=== PATIENT | female | born 1940 | race Caucasian/White ===

== ENCOUNTER 2017-10-06 10:34 | Observation (INO) | payer MEDICARE ==
[2017-10-06] MEDS: DUONEB 0.5-3 MG/3 ml Neb IH SCH ×4 (11:30→23:33)
[2017-10-06] MEDS ORDERED: DUONEB 0.5-3 MG/3 ml Neb IH ONE (11:38)
--- NOTE | 2017-10-06 12:37 | PCM.HP ---
History of Present Illness - Chief Complaint Chief Complaint: C/o cough, chest congestion and fever for 3-4 days History of Present Illness: is a 77 year old female.admitted to hospital with c/o fever, chills, cough, for 2-3 days - Review of Systems Constitutional: Fever, Chills, Fatigue, Lethargy, Weakness Eyes: No Symptoms Ears, Nose, & Throat: No Symptoms Respiratory: Cough, Orthopnea, Short Of Breath, Wheezing Cardiac: No Chest Pain, No Edema, No Syncope Abdominal/Gastrointestinal: No Abdominal Pain, No Nausea, No Vomiting, No Diarrhea Genitourinary Symptoms: No Dysuria Musculoskeletal: No Back Pain, No Neck Pain Skin: No Rash Neurological: No Dizziness, No Focal Weakness, No Sensory Changes Psychological: No Symptoms Endocrine: No Symptoms Hematologic/Lymphatic: No Symptoms Immunological/Allergic: No Symptoms Medications & Allergies Home Medications: Home Medication List Famotidine 20 mg [Pepcid 20 MG] 20 mg PO BID 10/21/12 [History Confirmed 10/06/17] Lisinopril 20 mg PO DAILY 10/21/12 [History Confirmed 10/06/17] Ipratropium/Albuterol Sulfate [Duoneb 0.5 mg-3 mg/3 ml Soln] 3 ml IH QID [History Confirmed 10/06/17] Clonidine HCl 0.1 mg [Catapres 0.1 MG] 0.1 mg PO BID 01/27/14 [History Confirmed 10/06/17] Aspirin 81 gm Chew [Baby Aspirin 81 mg Chew] 81 mg PO DAILY 05/15/14 [ History Confirmed 10/06/17] Glipizide 5 mg [Glucotrol 5 MG] 5 mg PO DAILY 05/15/14 [History Confirmed 10/06/17] Amlodipine Besylate 5 mg [Norvasc 5 mg] 5 mg PO BID 10/20/14 [History Confirmed 10/06/17] Carvedilol 12.5 mg [Coreg 12.5 mg] 6.25 mg PO BID 10/20/14 [History Confirmed 10/06/17] Ferrous Sulfate [Iron] 325 mg PO DAILY #30 01/19/15 [Rx Confirmed 10/06/17] Bumetanide 2 mg PO BID 03/08/15 [History Confirmed 10/06/17] Magnesium 250 mg PO DAILY 10/13/16 [History Confirmed 10/06/17] Allergies/Adverse Reactions: Allergies Allergy/AdvReac Type Severity Reaction Status Date / Time oxycodone HCl [From Percodan] Allergy Intermediate hallucinate Verified 06:44 oxycodone terephthalate Allergy Intermediate hallucinati Verified 10/13/16 06:44 [From Percodan] ons clopidogrel bisulfate AdvReac Severe Verified 10/13/16 06:44 [From Plavix] prednisone AdvReac Intermediate Feeling Verified 10/13/16 06:44 jittery with prednisone - Past Medical History Past Medical History: Yes Neurological History: No Pertinent History ENT History: No Pertinent History Cardiac History: Hypertension, Other Respiratory History: Bronchitis, COPD, Emphysema, Pneumonia Endocrine Medical History: Diabetes Type II Musculoskelatal History: Arthritis, Osteoarthritis GI Medical History: Irritable Bowel, Ulcer History: No Pertinent History Pyscho-Social History: No Pertinent History Reproductive Disorders: No Pertinent History, Other Comment: stomach aneurysm, 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 EGD - Social History Smoking Status: Current every day smoker How long have you smoked: 52 years Exposure to second hand smoke: Yes Alcohol: None Drug Use: none - Physical Exam Vital Signs: Vital Signs - 24 hr Temp Pulse Resp BP Pulse Ox 10/06/17 11:57 98.7 F 76 24 148/72 88 L Oxygen-Last 24 hours O2 Percentage 4 Liters = 36% General Appearance: no apparent distress, alert Neurologic Exam: alert, oriented x 3, cooperative, normal mood/affect, nml cerebellar function, nml station & gait, sensation nml, No motor deficits Eye Exam: PERRL/EOMI, eyes nml inspection Ears, Nose, Throat Exam: normal ENT inspection, TMs normal, pharynx normal, moist mucous membranes Neck Exam: normal inspection, non-tender, supple, full range of motion Respiratory Exam: chest tenderness, crackles/rales, rhonchi, wheezing, No respiratory distress Cardiovascular Exam: regular rate/rhythm, normal heart sounds, normal peripheral pulses Gastrointestinal/Abdomen Exam: soft, normal bowel sounds, No tenderness, No mass Back Exam: normal inspection, normal range of motion, No CVA tenderness, No vertebral tenderness Extremity Exam: normal inspection, normal range of motion, pelvis stable Skin Exam: normal color, warm, dry, No rash Lymphatic Exam: No adenopathy Results - Radiology Impressions Radiology Exams & Impressions: Radiology Procedures Category Date Time Status CHEST 2 VIEWS (PA AND LAT) Stat Exams 10/06/17 12:31 Ordered - Other Procedures and Tests Respiratory Therapy 10/06/17 12:31 Respiratory Therapy Consult ROUTINE Assessment/Plan (1) Pneumonia Current Visit: Yes Status: Acute Qualifiers: Pneumonia type: due to unspecified organism Laterality: right Lung location: middle lobe of lung Qualified Code(s): J18.1 - Lobar pneumonia, unspecified organism Code(s): J18.9 - PNEUMONIA, UNSPECIFIED ORGANISM (2) COPD exacerbation Current Visit: Yes Status: Acute Code(s): J44.1 - CHRONIC OBSTRUCTIVE PULMONARY DISEASE W (ACUTE) EXACERBATION (3) Congestive heart failure (CHF) Current Visit: Yes Status: Chronic Qualifiers: Congestive heart failure type: combined Congestive heart failure chronicity : chronic Qualified Code(s): I50.42 - Chronic combined systolic (congestive) and diastolic (congestive) heart failure Code(s): I50.9 - HEART FAILURE, UNSPECIFIED (4) Diabetes mellitus Current Visit: Yes Status: Chronic Code(s): E11.9 - TYPE 2 DIABETES MELLITUS WITHOUT COMPLICATIONS
--- NOTE | 2017-10-06 13:31 | XRAY ---
Indication: Pneumonia. Comparison: October 14, 2016. PA/lateral chest again hyperinflated with new right middle lobe and lesser degree right upper lobe consolidating infiltrate versus atelectasis. Remaining lungs clear. Heart is not enlarged. Stable calcified granulomas.
[2017-10-06 14:16] LABS: BASOPHIL % 0.5 % (0.0-0.4); Eosinophil % 0.6 % (0.00-5.0); Granulocytes % 80.7 % (36.0-66.0); Lymphocytes % 9.9 % (24.0-44.0); Mean Cell Volume 104.3 fl (78-100); Mean Corpuscular Hemoglobin 30.7 pg (26-32); Mean Platelet Volume 9.5 fl (6-9.5); Monocytes % 8.3 % (0.0-12.0); Platelet Count 360 K/mm3 (150-450); Red Blood Count 2.31 M/mm3 (4.1-5.4); Red Cell Distribution Width 14.7 % (11.5-14.0); White Blood Count 6.2 K/mm3 (4.0-10.5)
[2017-10-06 14:32] LABS: ANION GAP 7.8 MEQ/L (5-15); Carbon Dioxide 33.8 mEq/L (21-32); Potassium 5.4 mEq/L (3.5-5.1)
[2017-10-06] MEDS ORDERED: Lasix 20 MG/2 ML IV SCH (15:48)
[2017-10-06] MEDS: Sodium Chloride 0.9% 1000 ML 1,000 ML IV SCH (15:53)
[2017-10-06] MEDS: FEOSOL 325 MG PO SCH (15:55)
[2017-10-06] MEDS: Glucotrol 5 MG PO SCH (15:56)
[2017-10-06] MEDS: MAG-OX 400 PO SCH (15:56)
[2017-10-06] MEDS: Zestril 20 MG PO SCH (15:56)
[2017-10-06] MEDS: ECOTRIN 81 MG PO SCH (15:57)
[2017-10-06] MEDS: ROCEPHIN 1 Gm-D5w 50 ml Bag** 1 G/50 ML IVPB IV SCH (16:17)
[2017-10-06] MEDS: Catapres 0.1 MG PO SCH (17:43)
[2017-10-06] MEDS: BUMEX 1 MG PO SCH (17:44)
[2017-10-06] MEDS: Zithromax 500 MG/ 250 ML NaCl Premix 500 MG/250 ML IVPB IV SCH (17:44)
[2017-10-06] MEDS: Pepcid 20 MG PO SCH (17:44)
[2017-10-06] MEDS ORDERED: BUMETANIDE 2 MG PO SCH (22:00)
[2017-10-06] MEDS: Coreg 6.25 MG PO SCH (22:02)
[2017-10-06] MEDS: NORVASC 5 MG PO SCH (22:02)
[2017-10-07] MEDS: DUONEB 0.5-3 MG/3 ml Neb IH SCH ×6 (02:36→23:09)
[2017-10-07] MEDS: Sodium Chloride 0.9% 500 ML 500 ML IV SCH ×2 (02:44→09:14)
[2017-10-07] MEDS ORDERED: Lasix 20 MG/2 ML ONE (05:45)
[2017-10-07] MEDS: Pepcid 20 MG PO SCH ×2 (08:30→16:55)
[2017-10-07] MEDS: ECOTRIN 81 MG PO SCH (08:31)
[2017-10-07] MEDS: NORVASC 5 MG PO SCH ×2 (08:31→20:43)
[2017-10-07] MEDS: Glucotrol 5 MG PO SCH (08:31)
[2017-10-07] MEDS: FEOSOL 325 MG PO SCH (08:31)
[2017-10-07] MEDS: Catapres 0.1 MG PO SCH ×2 (08:31→16:56)
[2017-10-07] MEDS: Zestril 20 MG PO SCH (08:32)
[2017-10-07] MEDS: MAG-OX 400 PO SCH (08:32)
[2017-10-07] MEDS: BUMEX 1 MG PO SCH ×2 (08:33→16:55)
[2017-10-07] MEDS: Coreg 6.25 MG PO SCH ×2 (08:33→20:43)
--- NOTE | 2017-10-07 08:58 | PCM.NOTE ---
Date and Time: 10/07/17 0856 Subjective Assessment: doing better - Review of Systems Constitutional: No Fever, No Chills Eyes: No Symptoms Ears, Nose, & Throat: No Symptoms Respiratory: No Cough, No Short Of Breath Cardiac: No Chest Pain, No Edema, No Syncope Abdominal/Gastrointestinal: No Abdominal Pain, No Nausea, No Vomiting, No Diarrhea Genitourinary Symptoms: No Dysuria Musculoskeletal: No Back Pain, No Neck Pain Skin: No Rash Neurological: No Dizziness, No Focal Weakness, No Sensory Changes Psychological: No Symptoms Endocrine: No Symptoms Hematologic/Lymphatic: No Symptoms Immunological/Allergic: No Symptoms Objective Exam General Appearance: no apparent distress, alert Neurologic Exam: alert, oriented x 3, cooperative, normal mood/affect, nml cerebellar function, sensation nml, No motor deficits Skin Exam: normal color, warm, dry Eye Exam: PERRL, EOMI, eyes nml inspection Ears, Nose, Throat Exam: normal ENT inspection, pharynx normal, moist mucous membranes Neck Exam: normal inspection, non-tender, supple, full range of motion Respiratory Exam: normal breath sounds, lungs clear, No respiratory distress Cardiovascular Exam: regular rate/rhythm, normal heart sounds Gastrointestinal/Abdomen Exam: soft, No tenderness, No mass Extremity Exam: normal inspection, normal range of motion Back Exam: normal inspection, normal range of motion, No CVA tenderness, No vertebral tenderness Pelvic Exam: deferred Rectal Exam: deferred OBJECTIVE DATA Vital Signs: Vital Signs - 24 hr Temp Pulse Resp BP Pulse Ox 10/07/17 07:06 97.3 F 75 20 143/60 90 L 10/07/17 07:03 77 20 90 L 10/07/17 04:00 97.8 F 74 20 124/50 93 L 10/07/17 02:37 75 20 82 L 10/07/17 00:00 98.2 F 79 20 137/59 90 L 10/06/17 23:33 77 22 91 L 10/06/17 20:00 98.6 F 89 22 134/64 90 L 10/06/17 19:20 80 22 90 L 10/06/17 16:00 98.6 F 87 22 129/57 90 L 10/06/17 15:00 24 10/06/17 12:45 98.7 F 76 24 148/72 88 L 10/06/17 11:57 98.7 F 76 24 148/72 88 L 10/06/17 11:30 80 24 88 L Oxygen-Last 24 hours O2 Percentage 5 Liters = 40% O2 Percentage 5 Liters = 40% O2 Percentage 5 Liters = 40% O2 Percentage 6 Liters = 44% O2 Percentage 4 Liters = 36% O2 Percentage 4 Liters = 36% Pain Assessment - Last Documented Pain Intensity 5 Pain Scale Used FLACC Intake and Output: Intake & Output 10/04/17 10/05/17 10/06/17 10/07/17 11:59 11:59 11:59 11:59 Intake Total 1080 Output Total 600 Balance 480 Weight 81.647 kg Lab Results: Accuchecks Date 10/06/17 Time 22:00 Accucheck Value: 160 Accucheck Value: 213 Lab Results-Last 24 Hours 10/06/17 10/06/17 10/06/17 Range/Units 14:00 14:00 14:10 WBC 6.2 (4.0-10.5) K/mm3 RBC 2.31 L (4.1-5.4) M/mm3 Hgb 7.1 L (12.0-16.0) gm/dl Hct 24.1 L (35-47) % MCV 104.3 H (78-100) fl MCH 30.7 (26-32) pg MCHC 29.5 L (32-36) g/dl RDW 14.7 H (11.5-14.0) % Plt Count 360 (150-450) K/mm3 MPV 9.5 (6-9.5) fl Gran % 80.7 H (36.0-66.0) % Lymphocytes % 9.9 L (24.0-44.0) % Monocytes % 8.3 (0.0-12.0) % Eosinophils % 0.6 (0.00-5.0) % Basophils % 0.5 (0.0-0.4) % Basophils # 0.03 (0-0.4) Sodium 132 L (136-145) mEq/L Potassium 5.4 H (3.5-5.1) mEq/L Chloride 96 L (98-107) mEq/L Carbon Dioxide 33.8 H (21-32) mEq/L Anion Gap 7.8 (5-15) MEQ/L BUN 34 H (9-20) mg/dL Creatinine 1.79 H (0.55-1.30) mg/dl Estimated GFR 29 ML/MIN Glucose 200 H (70-110) MG/DL Hemoglobin A1c (4.5-6.2) Calcium 8.6 (8.5-10.1) mg/dL ABO Group B Rh Factor NEGATIVE Antibody Screen NEGATIVE (NEGATIVE) Crossmatch (COMPATIBLE) 10/06/17 10/06/17 10/06/17 Range/Units 14:10 14:10 14:10 WBC (4.0-10.5) K/mm3 RBC (4.1-5.4) M/mm3 Hgb (12.0-16.0) gm/dl Hct (35-47) % MCV (78-100) fl MCH (26-32) pg MCHC (32-36) g/dl RDW (11.5-14.0) % Plt Count (150-450) K/mm3 MPV (6-9.5) fl Gran % (36.0-66.0) % Lymphocytes % (24.0-44.0) % Monocytes % (0.0-12.0) % Eosinophils % (0.00-5.0) % Basophils % (0.0-0.4) % Basophils # (0-0.4) Sodium (136-145) mEq/L Potassium (3.5-5.1) mEq/L Chloride (98-107) mEq/L Carbon Dioxide (21-32) mEq/L Anion Gap (5-15) MEQ/L BUN (9-20) mg/dL Creatinine (0.55-1.30) mg/dl Estimated GFR ML/MIN Glucose (70-110) MG/DL Hemoglobin A1c (4.5-6.2) Calcium (8.5-10.1) mg/dL ABO Group Rh Factor Antibody Screen (NEGATIVE) Crossmatch COMPATIBLE COMPATIBLE COMPATIBLE (COMPATIBLE) 10/06/17 Range/Units 16:00 WBC (4.0-10.5) K/mm3 RBC (4.1-5.4) M/mm3 Hgb (12.0-16.0) gm/dl Hct (35-47) % MCV (78-100) fl MCH (26-32) pg MCHC (32-36) g/dl RDW (11.5-14.0) % Plt Count (150-450) K/mm3 MPV (6-9.5) fl Gran % (36.0-66.0) % Lymphocytes % (24.0-44.0) % Monocytes % (0.0-12.0) % Eosinophils % (0.00-5.0) % Basophils % (0.0-0.4) % Basophils # (0-0.4) Sodium (136-145) mEq/L Potassium (3.5-5.1) mEq/L Chloride (98-107) mEq/L Carbon Dioxide (21-32) mEq/L Anion Gap (5-15) MEQ/L BUN (9-20) mg/dL Creatinine (0.55-1.30) mg/dl Estimated GFR ML/MIN Glucose (70-110) MG/DL Hemoglobin A1c 6.0 (4.5-6.2) Calcium (8.5-10.1) mg/dL ABO Group Rh Factor Antibody Screen (NEGATIVE) Crossmatch (COMPATIBLE) Radiology Exams: Radiology Procedures Category Date Time Status CHEST 2 VIEWS (PA AND LAT) Stat Exams 10/06/17 12:31 Completed Assessment/Plan (1) Pneumonia Current Visit: Yes Status: Acute Qualifiers: Pneumonia type: due to unspecified organism Laterality: right Lung location: middle lobe of lung Qualified Code(s): J18.1 - Lobar pneumonia, unspecified organism Code(s): J18.9 - PNEUMONIA, UNSPECIFIED ORGANISM (2) COPD exacerbation Current Visit: Yes Status: Acute Code(s): J44.1 - CHRONIC OBSTRUCTIVE PULMONARY DISEASE W (ACUTE) EXACERBATION (3) Congestive heart failure (CHF) Current Visit: Yes Status: Chronic Qualifiers: Congestive heart failure type: combined Congestive heart failure chronicity : chronic Qualified Code(s): I50.42 - Chronic combined systolic (congestive) and diastolic (congestive) heart failure Code(s): I50.9 - HEART FAILURE, UNSPECIFIED (4) Diabetes mellitus Current Visit: Yes Status: Chronic Code(s): E11.9 - TYPE 2 DIABETES MELLITUS WITHOUT COMPLICATIONS
[2017-10-07] MEDS ORDERED: Lasix 20 MG/2 ML IV SCH (09:00)
[2017-10-07 09:09] LABS: Mean Cell Volume 98.4 fl (78-100); Mean Corpuscular Hemoglobin 30.2 pg (26-32); Mean Platelet Volume 9.4 fl (6-9.5); Platelet Count 332 K/mm3 (150-450); Red Blood Count 3.14 M/mm3 (4.1-5.4); Red Cell Distribution Width 16.5 % (11.5-14.0); White Blood Count 5.6 K/mm3 (4.0-10.5)
[2017-10-07 09:30] LABS: ANION GAP 10.6 MEQ/L (5-15); Carbon Dioxide 31.1 mEq/L (21-32); Potassium 5.2 mEq/L (3.5-5.1)
[2017-10-07] MEDS ORDERED: NON-FORMULARY ITEM (Magnesium [Magnesium] 250 MG) PO SCH (10:00)
[2017-10-07] MEDS: ROCEPHIN 1 Gm-D5w 50 ml Bag** 1 G/50 ML IVPB IV SCH (11:41)
[2017-10-07] MEDS: Zithromax 500 MG/ 250 ML NaCl Premix 500 MG/250 ML IVPB IV SCH (11:41)
[2017-10-07] MEDS: Sodium Chloride 0.9% 1000 ML 1,000 ML IV SCH ×2 (17:01→17:08)
[2017-10-08] MEDS: DUONEB 0.5-3 MG/3 ml Neb IH SCH ×3 (03:20→10:58)
[2017-10-08] MEDS: Sodium Chloride 0.9% 1000 ML 1,000 ML IV SCH (03:55)
[2017-10-08] MEDS: Pepcid 20 MG PO SCH (08:26)
[2017-10-08] MEDS: Catapres 0.1 MG PO SCH (08:26)
[2017-10-08] MEDS: Glucotrol 5 MG PO SCH (08:26)
[2017-10-08] MEDS: ECOTRIN 81 MG PO SCH (08:26)
[2017-10-08] MEDS: Coreg 6.25 MG PO SCH (09:24)
[2017-10-08] MEDS: FEOSOL 325 MG PO SCH (09:24)
[2017-10-08] MEDS: Zestril 20 MG PO SCH (09:24)
[2017-10-08] MEDS: NORVASC 5 MG PO SCH (09:24)
[2017-10-08] MEDS: MAG-OX 400 PO SCH (09:24)
[2017-10-08] MEDS: BUMEX 1 MG PO SCH (09:24)
[2017-10-08] MEDS: ROCEPHIN 1 Gm-D5w 50 ml Bag** 1 G/50 ML IVPB IV SCH (09:25)
[2017-10-08] MEDS: Zithromax 500 MG/ 250 ML NaCl Premix 500 MG/250 ML IVPB IV SCH (11:18)
[2017-10-08 11:41] VITALS: BP 152/70; PULSE 76; O2SAT 91
--- NOTE | 2017-10-08 12:38 | PCM.DS ---
Discharge Summary Date of Admission: 10/06/17 11:41 Admitting Physician: FREDDY TRAYLOR Primary Care Provider: FREDDY TRAYLOR Allergies Allergies oxycodone HCl [From Percodan] Allergy (Intermediate, Verified 10/13/16 06:44) hallucinate oxycodone terephthalate [From Percodan] Allergy (Intermediate, Verified 06:44) hallucinations itching clopidogrel bisulfate [From Plavix] Adverse Reaction (Severe, Verified 10/13/16 06:44) prednisone Adverse Reaction (Intermediate, Verified 10/13/16 06:44) Feeling jittery with prednisone Hospital Summary - Hospital Course Hospital Course: Chief Complaint Diagnosis C/o cough, chest congestion and fever for 3-4 days Allergies Allergy/AdvReac Type Severity Reaction Status Date / Time oxycodone HCl [From Percodan] Allergy Intermediate hallucinate Verified 06:44 oxycodone terephthalate Allergy Intermediate hallucinati Verified 10/13/16 06:44 [From Percodan] ons clopidogrel bisulfate AdvReac Severe Verified 10/13/16 06:44 [From Plavix] prednisone AdvReac Intermediate Feeling Verified 10/13/16 06:44 jittery with prednisone Vital Signs (Last 24 hours) Temp Pulse Resp BP Pulse Ox 10/08/17 11:40 98.6 F 76 20 152/70 91 L 10/08/17 11:00 84 20 90 L 10/08/17 08:20 90 L 10/08/17 07:54 98.0 F 77 18 166/67 92 L 10/08/17 06:58 79 20 93 L 10/08/17 04:00 98.2 F 80 18 146/100 92 L 10/08/17 03:00 78 18 91 L 10/08/17 00:00 98.5 F 77 20 161/67 93 L 10/07/17 23:00 82 18 88 L 10/07/17 20:00 98.5 F 78 20 166/70 95 10/07/17 19:00 76 18 93 L 10/07/17 15:13 98.2 F 87 20 136/80 90 L 10/07/17 14:39 89 18 90 L Current Medications Generic Name Dose Route Start Last Admin Trade Name Freq PRN Reason Stop Dose Admin Albuterol/Ipratropium 3 ml 10/06/17 11:00 10/08/17 10:58 Duoneb 0.5-3 Mg/3 Ml Neb IH 11/05/17 10:59 3 ml Q4HRT IVANA Administration Amlodipine Besylate 5 mg 10/06/17 22:00 10/08/17 09:24 Norvasc 5 Mg PO 11/05/17 21:59 5 mg BID IVANA Administration Aspirin 81 mg 10/06/17 16:00 10/08/17 08:26 Ecotrin 81 Mg PO 11/05/17 15:59 81 mg BREAKFAST IVANA Administration Bumetanide 2 mg 10/06/17 17:00 10/08/17 09:24 Bumex 1 Mg PO 11/05/17 16:59 2 mg BID DIURETIC IVANA Administration Carvedilol 6.25 mg 10/06/17 22:00 10/08/17 09:24 Coreg 6.25 Mg PO 11/05/17 21:59 6.25 mg BID IVANA Administration Clonidine 0.1 mg 10/06/17 17:00 10/08/17 08:26 Catapres 0.1 Mg PO 11/05/17 16:59 0.1 mg BIDWM IVANA Administration Famotidine 20 mg 10/06/17 17:00 10/08/17 08:26 Pepcid 20 Mg PO 11/05/17 16:59 20 mg BIDWM IVANA Administration Ferrous Sulfate 325 mg 10/06/17 16:00 10/08/17 09:24 Feosol 325 Mg PO 11/05/17 15:59 325 mg DAILY IVANA Administration Furosemide 20 mg 10/07/17 09:00 10/07/17 09:13 Lasix 20 Mg/2 Ml IV 11/06/17 08:59 20 mg AFTER EA UNIT BLOOD IVANA Administration Glipizide 5 mg 10/06/17 16:00 10/08/17 08:26 Glucotrol 5 Mg PO 11/05/17 15:59 5 mg BREAKFAST IVANA Administration Ceftriaxone Sodium/Dextrose 1 g in 50 mls @ 100 mls/hr 10/06/17 13:00 09:25 Rocephin 1 Gm-D5w 50 Ml Bag IV 11/05/17 12:59 100 mls/hr Q24H10 IVANA Administration Azithromycin 500 mg in 250 mls @ 500 mls/hr 10/06/17 14:00 10/08/17 11:18 Zithromax 500 Mg/ 250 Ml Nacl Premix IV 11/05/17 13:59 Not Given DAILY IVANA Sodium Chloride 1,000 mls @ 100 mls/hr 10/06/17 14:00 10/08/17 03:55 Sodium Chloride 0.9% 1000 Ml IV 11/05/17 13:59 100 mls/hr .Q10H IVANA Administration Lisinopril 20 mg 10/06/17 16:00 10/08/17 09:24 Zestril 20 Mg PO 11/05/17 15:59 20 mg DAILY IVANA Administration Magnesium Oxide 200 mg 10/06/17 16:00 10/08/17 09:24 Mag-Ox 400 PO 11/05/17 15:59 200 mg DAILY IVANA Administration Discontinued Medications Generic Name Dose Route Start Last Admin Trade Name Freq PRN Reason Stop Dose Admin Albuterol/Ipratropium Confirm 10/06/17 11:38 Duoneb 0.5-3 Mg/3 Ml Neb Administered 10/06/17 11:39 Dose 3 ml IH .STK-MED ONE Furosemide 20 mg 10/06/17 15:48 10/07/17 05:53 Lasix 20 Mg/2 Ml IV 10/06/17 20:00 20 mg AFTER EA UNIT BLOOD IVANA Administration Furosemide Confirm 10/07/17 05:45 Lasix 20 Mg/2 Ml Administered 10/07/17 05:46 Dose 20 mg .ROUTE .STK-MED ONE Sodium Chloride 500 mls @ 50 mls/hr 10/07/17 02:45 10/07/17 09:14 Sodium Chloride 0.9% 500 Ml IV 10/07/17 12:44 50 mls/hr .Q10H IVANA Administration Intake & Output (Last 24 hours) 10/06/17 10/07/17 10/08/17 10/09/17 11:59 11:59 11:59 11:59 Intake Total 1080 1930 Output Total 600 2300 Balance 480 -370 Weight 81.647 kg Microbiology Results (Last 24 hours) 10/06/17 16:00 Blood - Pending 10/06/17 16:00 Blood Blood Culture - Preliminary NO GROWTH TO DATE 10/06/17 14:10 Blood - Pending 10/06/17 14:10 Blood Blood Culture - Preliminary NO GROWTH TO DATE Laboratory Results (Last 24 hours) 10/07/17 14:12 Hgb 10.0 L Hct 32.4 L Orders (Last 24 hours) Category Date Time Status HEMOGLOBIN AND HEMATOCRIT Urgent Lab 10/07/17 14:12 Completed - Vitals & Intake/Output Vital Signs: Vital Signs Temperature 98.6 F 10/08/17 11:40 Pulse Rate 76 10/08/17 11:40 Respiratory Rate 20 10/08/17 11:40 Blood Pressure 152/70 10/08/17 11:40 O2 Sat by Pulse Oximetry 91 L 10/08/17 11:40 Oxygen-Last Documented O2 Percentage 5 Liters = 40% Intake & Output: Intake & Output 10/06/17 10/07/17 10/08/17 10/09/17 11:59 11:59 11:59 11:59 Intake Total 1080 1930 Output Total 600 2300 Balance 480 -370 Weight 81.647 kg - Lab Result Diagrams: 10/07/17 14:12 10/07/17 09:07 Lab Results-Last 24 Hrs: Accuchecks Date 10/08/17 Date 10/07/17 Date 10/07/17 Time 07:30 Time 21:30 Time 16:00 Accucheck Value: 147 Accucheck Value: 176 Accucheck Value: 145 Lab Results-Last 24 Hours 10/07/17 Range/Units 14:12 Hgb 10.0 L (12.0-16.0) gm/dl Hct 32.4 L (35-47) % Micro Results-Entire Visit: Microbiology 10/06/17 16:00 Blood Culture - Preliminary Blood NO GROWTH TO DATE 10/06/17 14:10 Blood Culture - Preliminary Blood NO GROWTH TO DATE Accuchecks Date 10/08/17 Date 10/07/17 Date 10/07/17 Time 07:30 Time 21:30 Time 16:00 Accucheck Value: 147 Accucheck Value: 176 Accucheck Value: 145 - Radiology Exams Ordered Rad Exams-Entire Visit: Radiology Procedures Category Date Time Status CHEST 2 VIEWS (PA AND LAT) Stat Exams 10/06/17 12:31 Completed - Procedures and Test Procedures and Tests throughout Hospitalization: Therapy Orders & Screens 10/06/17 11:00 Respiratory Nebulizer Q4H Comment: Diagnosis: C/o cough, chest congestion and fever for 3-4 days 10/06/17 12:31 Respiratory Therapy Consult ROUTINE Comment: Reason For Exam: Diagnosis: Pneumonia 10/06/17 13:10 Oxygen NASAL CANNULA 4 lpm Comment: Diagnosis: C/o cough, chest congestion and fever for 3-4 days 10/06/17 15:09 OT Screen per Nursing Assess ONCE Comment: Protocol Order Physician Instructions: Greater than 3 points order OT Admission Screening Reason For Exam: Triggered on Admission Diagnosis: C/o cough, chest congestion and fever for 3-4 days Open Wound/Cellutlitis/Pressure Ulcers: No Acute Fx/ORIF/Change in wt bearing status: No Severe MUSCULOSKELETAL pain: No ADL Dysfunction: Yes Acute CVA w/Hemiparesis/Hemiplegia: No Decreased Functional Mobility/Strength: Yes Sprain/Strain: No Acute Post-op Mobility Dysfunction: No Total Points: 4 PT Screen per Nursing Assess ONCE Comment: Protocol Order Physician Instructions: Greater than 3 points order PT Admission Screenin Reason For Exam: Triggered on Admission Diagnosis: C/o cough, chest congestion and fever for 3-4 days Open Wound/Cellutlitis/Pressure Ulcers: No Acute Fx/ORIF/Change in wt bearing status: No Severe MUSCULOSKELETAL pain: No ADL Dysfunction: Yes Acute CVA w/Hemiparesis/Hemiplegia: No Decreased Functional Mobility/Strength: Yes Sprain/Strain: No Acute Post-op Mobility Dysfunction: No Total Points: 4 Discharge Exam General Appearance: no apparent distress, alert Neurologic Exam: alert, oriented x 3, cooperative, normal mood/affect, nml cerebellar function, sensation nml, No motor deficits Skin Exam: normal color, warm, dry Eye Exam: PERRL, EOMI, eyes nml inspection Ears, Nose, Throat Exam: normal ENT inspection, pharynx normal, moist mucous membranes Neck Exam: normal inspection, non-tender, supple, full range of motion Respiratory Exam: normal breath sounds, lungs clear, No respiratory distress Cardiovascular Exam: regular rate/rhythm, normal heart sounds Gastrointestinal/Abdomen Exam: soft, No tenderness, No mass Extremity Exam: normal inspection, normal range of motion Back Exam: normal inspection, normal range of motion, No CVA tenderness, No vertebral tenderness Pelvic Exam: deferred Rectal Exam: deferred Final Diagnosis/Problem List - Final Discharge Diagnosis/Problem (1) Pneumonia Current Visit: Yes Status: Acute Priority: High Assessment & Plan: Chief Complaint Diagnosis C/o cough, chest congestion and fever for 3-4 days Allergies Allergy/AdvReac Type Severity Reaction Status Date / Time oxycodone HCl [From Percodan] Allergy Intermediate hallucinate Verified 06:44 oxycodone terephthalate Allergy Intermediate hallucinati Verified 10/13/16 06:44 [From Percodan] ons clopidogrel bisulfate AdvReac Severe Verified 10/13/16 06:44 [From Plavix] prednisone AdvReac Intermediate Feeling Verified 10/13/16 06:44 jittery with prednisone Vital Signs (Last 24 hours) Temp Pulse Resp BP Pulse Ox 10/08/17 11:40 98.6 F 76 20 152/70 91 L 10/08/17 11:00 84 20 90 L 10/08/17 08:20 90 L 10/08/17 07:54 98.0 F 77 18 166/67 92 L 10/08/17 06:58 79 20 93 L 10/08/17 04:00 98.2 F 80 18 146/100 92 L 10/08/17 03:00 78 18 91 L 10/08/17 00:00 98.5 F 77 20 161/67 93 L 10/07/17 23:00 82 18 88 L 10/07/17 20:00 98.5 F 78 20 166/70 95 10/07/17 19:00 76 18 93 L 10/07/17 15:13 98.2 F 87 20 136/80 90 L 10/07/17 14:39 89 18 90 L Current Medications Generic Name Dose Route Start Last Admin Trade Name Freq PRN Reason Stop Dose Admin Albuterol/Ipratropium 3 ml 10/06/17 11:00 10/08/17 10:58 Duoneb 0.5-3 Mg/3 Ml Neb IH 11/05/17 10:59 3 ml Q4HRT IVANA Administration Amlodipine Besylate 5 mg 10/06/17 22:00 10/08/17 09:24 Norvasc 5 Mg PO 11/05/17 21:59 5 mg BID IVANA Administration Aspirin 81 mg 10/06/17 16:00 10/08/17 08:26 Ecotrin 81 Mg PO 11/05/17 15:59 81 mg BREAKFAST IVANA Administration Bumetanide 2 mg 10/06/17 17:00 10/08/17 09:24 Bumex 1 Mg PO 11/05/17 16:59 2 mg BID DIURETIC IVANA Administration Carvedilol 6.25 mg 10/06/17 22:00 10/08/17 09:24 Coreg 6.25 Mg PO 11/05/17 21:59 6.25 mg BID IVANA Administration Clonidine 0.1 mg 10/06/17 17:00 10/08/17 08:26 Catapres 0.1 Mg PO 11/05/17 16:59 0.1 mg BIDWM IVANA Administration Famotidine 20 mg 10/06/17 17:00 10/08/17 08:26 Pepcid 20 Mg PO 11/05/17 16:59 20 mg BIDWM IVANA Administration Ferrous Sulfate 325 mg 10/06/17 16:00 10/08/17 09:24 Feosol 325 Mg PO 11/05/17 15:59 325 mg DAILY IVANA Administration Furosemide 20 mg 10/07/17 09:00 10/07/17 09:13 Lasix 20 Mg/2 Ml IV 11/06/17 08:59 20 mg AFTER EA UNIT BLOOD IVANA Administration Glipizide 5 mg 10/06/17 16:00 10/08/17 08:26 Glucotrol 5 Mg PO 11/05/17 15:59 5 mg BREAKFAST IVANA Administration Ceftriaxone Sodium/Dextrose 1 g in 50 mls @ 100 mls/hr 10/06/17 13:00 09:25 Rocephin 1 Gm-D5w 50 Ml Bag IV 11/05/17 12:59 100 mls/hr Q24H10 IVANA Administration Azithromycin 500 mg in 250 mls @ 500 mls/hr 10/06/17 14:00 10/08/17 11:18 Zithromax 500 Mg/ 250 Ml Nacl Premix IV 11/05/17 13:59 Not Given DAILY IVANA Sodium Chloride 1,000 mls @ 100 mls/hr 10/06/17 14:00 10/08/17 03:55 Sodium Chloride 0.9% 1000 Ml IV 11/05/17 13:59 100 mls/hr .Q10H IVANA Administration Lisinopril 20 mg 10/06/17 16:00 10/08/17 09:24 Zestril 20 Mg PO 11/05/17 15:59 20 mg DAILY IVANA Administration Magnesium Oxide 200 mg 10/06/17 16:00 10/08/17 09:24 Mag-Ox 400 PO 11/05/17 15:59 200 mg DAILY IVANA Administration Discontinued Medications Generic Name Dose Route Start Last Admin Trade Name Freq PRN Reason Stop Dose Admin Albuterol/Ipratropium Confirm 10/06/17 11:38 Duoneb 0.5-3 Mg/3 Ml Neb Administered 10/06/17 11:39 Dose 3 ml IH .STK-MED ONE Furosemide 20 mg 10/06/17 15:48 10/07/17 05:53 Lasix 20 Mg/2 Ml IV 10/06/17 20:00 20 mg AFTER EA UNIT BLOOD IVANA Administration Furosemide Confirm 10/07/17 05:45 Lasix 20 Mg/2 Ml Administered 10/07/17 05:46 Dose 20 mg .ROUTE .STK-MED ONE Sodium Chloride 500 mls @ 50 mls/hr 10/07/17 02:45 10/07/17 09:14 Sodium Chloride 0.9% 500 Ml IV 10/07/17 12:44 50 mls/hr .Q10H IVANA Administration Intake & Output (Last 24 hours) 10/06/17 10/07/17 10/08/17 10/09/17 11:59 11:59 11:59 11:59 Intake Total 1080 1930 Output Total 600 2300 Balance 480 -370 Weight 81.647 kg Microbiology Results (Last 24 hours) 10/06/17 16:00 Blood - Pending 10/06/17 16:00 Blood Blood Culture - Preliminary NO GROWTH TO DATE 10/06/17 14:10 Blood - Pending 10/06/17 14:10 Blood Blood Culture - Preliminary NO GROWTH TO DATE Laboratory Results (Last 24 hours) 10/07/17 14:12 Hgb 10.0 L Hct 32.4 L Orders (Last 24 hours) Category Date Time Status HEMOGLOBIN AND HEMATOCRIT Urgent Lab 10/07/17 14:12 Completed doing better, will discharge home (2) COPD exacerbation Current Visit: Yes Status: Acute Assessment & Plan: resolved (3) Congestive heart failure (CHF) Current Visit: Yes Status: Chronic (4) Diabetes mellitus Current Visit: Yes Status: Chronic Assessment & Plan: stable (5) Anemia Current Visit: Yes Status: Acute Assessment & Plan: received 3 units of PRBC - Discharge Discharge Date: 10/08/17 Disposition: Home, Self-Care Condition: Stable Prescriptions: New Levofloxacin [Levaquin] 250 mg PO DAILY #5 tablet Continue Lisinopril 20 mg PO DAILY Famotidine 20 mg [Pepcid 20 MG] 20 mg PO BID Ipratropium/Albuterol Sulfate [Duoneb 0.5 mg-3 mg/3 ml Soln] 3 ml IH QID Clonidine HCl 0.1 mg [Catapres 0.1 MG] 0.1 mg PO BID Glipizide 5 mg [Glucotrol 5 MG] 5 mg PO DAILY Aspirin 81 gm Chew [Baby Aspirin 81 mg Chew] 81 mg PO DAILY Amlodipine Besylate 5 mg [Norvasc 5 mg] 5 mg PO BID Carvedilol 12.5 mg [Coreg 12.5 mg] 6.25 mg PO BID Ferrous Sulfate [Iron] 325 mg PO DAILY #30 Bumetanide 2 mg PO BID Magnesium 250 mg PO DAILY Follow up with: FREDDY TRAYLOR MD [Primary Care Provider] - 1 Week
== END 2017-10-08 13:15 | disposition home or self-care (01) ==
LOC: MED SURG 11:41
PROVIDERS: ADMIT General Practice; ATTEND General Practice
DX: J18.9 Pneumonia, unspecified organism (principal); J44.1 Chronic obstructive pulmonary disease with (acute) exacerbation; E11.9 Type 2 diabetes mellitus without complications; I50.9 Heart failure, unspecified; D64.9 Anemia, unspecified
CPT/HCPCS: 82962 ×2; 87040; 85014; 85018; 36415 ×2; 83036; 85027; 85025; 80048 ×2; 86850; 86900; 86901; 86922; 71020; 94640 ×6; 94760 ×3; P9016; 36430; 86870; G0378; J0456; J0696; J1940; A9270-GY

== ENCOUNTER 2017-11-20 14:37 | Emergency (ER) | payer MEDICARE ==
[2017-11-20] MEDS ORDERED: DUONEB 0.5-3 MG/3 ml Neb IH ONE ×2 (14:38→14:49)
[2017-11-20] MEDS ORDERED: Sodium Chloride 0.9% 1000 ML 1,000 ML IV SCH (14:45)
[2017-11-20 14:59] LABS: Lactic Acid 2.2 (0.4-2.0); VBG BASE EXCESS 9.3 (-2.0-2.0); VBG CARBOXYHEMOGLOBIN 6.2 % T HGB (0.0-6.9); VBG HCO3- 36.2 meq/L (22-28); VBG HEMOGLOBIN 8.6; VBG O2 SATURATION 60.4 (95-100); VBG PCO2 64 mm/Hg (42-55); VBG PO2 26 mm/Hg (25-40); VBG POTASSIUM 5.6 (3.5-5.1); VBG pH 7.36 (7.32-7.42)
--- NOTE | 2017-11-20 14:59 | ERPHSYRPT ---
- History of Present Illness Time Seen by Provider: 11/20/17 14:47 Source: patient Exam Limitations: no limitations Physician History: 77-year-old white female with history of iron deficiency anemia, high blood pressure, COPD, emphysema, pneumonia, diabetes, arthritis, irritable bowel, ulcers Patient is brought from the infusion center short of breath patient was apparently supposed to have an iron infusion today however she was noted to be 2 short of breath and infusion center did not feel comfortable giving her the infusion. She apparently had been seen Thursday 4 days ago secondary to shortness of breath she had been noted to be anemic and iron infusion was scheduled for today. She states that beginning 2 days ago she began to feel short of breath she was wheezing she is coughing up yellow sputum she denies any fever she denies any chest pain denies nausea or vomiting. Patient arrives moderately short of breath she has diminished breath sounds in her lungs and wheezes. She does state that she missed 2 DuoNeb treatments today. Patient is also noted to be on home O2 supposedly of 4 L/m however she was taking only 2 L/m. 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 Past surgical history includes appendectomy, hysterectomy, AAA, back surgery, right ovary removed, right carotid stent. Social history patient continues to smoke. Timing/Duration: day(s) (short of breath for 4 days wheezing coughing for 2 days ) Activities at Onset: none Severity of Dyspnea-Max: moderate Severity of Dyspnea-Current: moderate Possible Cause: frequent episodes Modifying Factors: Improves With: nothing, other (Patient uses duo neb treatments however she has missed 2 of these) Associated Symptoms: constant, cough, wheezing, productive cough (yellow sputum) , No intermittent, No anxiety, No chest pain/discomfort, No edema, No fever, No insomnia, No loss of appetite, No lightheadedness, No weakness, No ankle swelling, No chills, No hemoptysis, No calf pain, No dizziness, No heaviness, No heart racing, No lightheadedness, No leg swelling, No muscle spasms feet, No muscle spasms hands, No painful breathing, No sweating, No tightness, No tingling face, No tingling hands International travel in last 2 weeks: No Allergies/Adverse Reactions: oxycodone HCl [From Percodan] Allergy (Intermediate, Verified 11/20/17 14:55) hallucinate oxycodone terephthalate [From Percodan] Allergy (Intermediate, Verified 14:55) hallucinations itching clopidogrel bisulfate [From Plavix] Adverse Reaction (Severe, Verified 11/20/17 14:55) prednisone Adverse Reaction (Intermediate, Verified 11/20/17 14:55) Feeling jittery with prednisone Home Medications: Famotidine 20 mg [Pepcid 20 MG] 20 mg PO BID 10/21/12 [History] Lisinopril 20 mg PO DAILY 10/21/12 [History] Ipratropium/Albuterol Sulfate [Duoneb 0.5 mg-3 mg/3 ml Soln] 3 ml IH QID [History] Clonidine HCl 0.1 mg [Catapres 0.1 MG] 0.1 mg PO BID 01/27/14 [History] Aspirin 81 gm Chew [Baby Aspirin 81 mg Chew] 81 mg PO DAILY 05/15/14 [ History] Glipizide 5 mg [Glucotrol 5 MG] 5 mg PO DAILY 05/15/14 [History] Amlodipine Besylate 5 mg [Norvasc 5 mg] 5 mg PO BID 10/20/14 [History] Carvedilol 12.5 mg [Coreg 12.5 mg] 6.25 mg PO BID 10/20/14 [History] Bumetanide 2 mg PO BID 03/08/15 [History] Magnesium 250 mg PO DAILY 10/13/16 [History] Hx Tetanus, Diphtheria Vaccination/Date Given: No Hx Influenza Vaccination/Date Given: No (07/2013) Hx Pneumococcal Vaccination/Date Given: No (within last 5 years) - Review of Systems Constitutional: No Fever, No Chills Eyes: No Symptoms Ears, Nose, & Throat: No Symptoms, No Ear Pain, No Ear Discharge, No Hearing Changes, No Tinnitus, No Nose Pain, No Nose Congestion, No Nose Discharge, No Sinus Drainage, No Epistaxis, No Mouth Pain, No Mouth Swelling, No Loose Teeth, No Throat Pain, No Throat Swelling, No Hoarse, No Painful Swallowing, No Snoring , No Stridor Respiratory: Cough, Dyspnea, Wheezing Cardiac: No Chest Pain, No Edema, No Syncope Abdominal/Gastrointestinal: No Symptoms Genitourinary Symptoms: No Dysuria Musculoskeletal: No Back Pain, No Neck Pain Skin: No Rash Neurological: No Dizziness, No Focal Weakness, No Sensory Changes Psychological: No Symptoms Endocrine: No Symptoms All Other Systems: Reviewed and Negative - Past Medical History Pertinent Past Medical History: Yes Neurological History: No Pertinent History ENT History: No Pertinent History Cardiac History: Hypertension, Other Respiratory History: Bronchitis, COPD, Emphysema, Pneumonia Endocrine Medical History: Diabetes Type II Musculoskeletal History: Arthritis, Osteoarthritis GI Medical History: Irritable Bowel, Ulcer History: No Pertinent History Psycho-Social History: No Pertinent History Female Reproductive Disorders: No Pertinent History, Other Other Medical History: stomach aneurysm, 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 EGD - Social History Smoking Status: Current every day smoker How long have you smoked: 52 years Exposure to second hand smoke: Yes Drug Use: none Patient Lives Alone: No - Nursing Vital Signs Nursing Vital Signs: Initial Vital Signs Temperature 97.9 F 11/20/17 14:44 Pulse Rate 77 11/20/17 14:44 Respiratory Rate 28 H 11/20/17 14:44 Blood Pressure 118/51 11/20/17 14:44 O2 Sat by Pulse Oximetry 94 L 11/20/17 14:44 Pain Scale Pain Intensity 0 - Physical Exam General Appearance: other (morbidly obese white female alert oriented x 3 , pleasant and cooperative to examination, dyspneic) Eye Exam: PERRL/EOMI Ears, Nose, Throat Exam: hearing grossly normal, normal ENT inspection, normal pharynx, No abnormal TM (R), No abnormal TM (L), No sinus pain/drainage, No hearing decreased, No nasal congestion, No pharyngeal erythema, No tonsillar exudate, No tonsillar swelling Neck Exam: normal inspection, supple Respiratory Exam: respiratory distress (Mild to moderate respiratory distress), diminished breath sounds, wheezing Cardiovascular/Chest Exam: normal heart sounds, regular rate/rhythm Abdominal/Gastrointestinal Exam: soft, No tenderness, No distention, No mass Extremity Exam: non-tender, normal range of motion, normal inspection, no calf tenderness, no pedal edema Peripheral Pulses Exam: dorsalis-pedis (R): 2+, dorsalis-pedis (L): 2+ Neurologic Exam: alert, oriented x 3, cooperative, acid strength inspector II-XII nml as tested, normal mood/affect, nml cerebellar function, nml station & gait, sensation nml, No motor deficits Skin Exam: normal color, warm, No dry SpO2 Interpretation: borderline oxygenation (93% on 4 L nasal cannula) SpO2: 93 Oxygen Delivery: Nasal Cannula - Course Nursing assessment & vital signs reviewed: Yes EKG Interpreted by Me: RATE (77 bpm), Sinus Miguel, NORMAL AXIS, Other (EKG: Normal sinus rhythm 72 bpm normal axis no acute ST or T wave changes noted compared to October 13, 2016) - Radiology Exams Chest X-ray Interpretation: Discussed w/ radiologist (chest x-ray: Impression: 1. Small residual versus recurrent right base infiltrate/atelectasis. correlate clinically. 2. Stable COPD and evidence for old granulomatous disease.) Ordered Tests: Active Orders 24 hr Category Date Time Status Pourer Buggy Ladle STAT Care 11/20/17 14:40 Active EKG-ER Only STAT Care 11/20/17 14:38 Active IV Insertion STAT Care 11/20/17 14:38 Active Oxygen-ED Only NASAL CANNULA 4 lpm Care 11/20/17 14:38 Active CHEST 1 VIEW (PORTABLE) Stat Exams 11/20/17 14:39 Completed BLOOD CULTURE Stat Lab 11/20/17 15:35 Received CBC W DIFF Stat Lab 11/20/17 14:50 Completed CMP Stat Lab 11/20/17 14:50 Completed CULTURE,SPUTUM Stat Lab 11/20/17 14:39 Uncollected D-DIMER QUANTITATION Stat Lab 11/20/17 14:50 Completed Lactic Acid Stat Lab 11/20/17 14:50 Results NT PRO BNP Stat Lab 11/20/17 14:50 Completed TROPONIN Q3H Lab 11/20/17 14:50 Completed TROPONIN Q3H Lab 11/20/17 17:45 Ordered TROPONIN Q3H Lab 11/20/17 20:45 Ordered TROPONIN Q3H Lab 11/20/17 23:45 Ordered TROPONIN Q3H Lab 11/21/17 02:45 Ordered UA W/RFX UR CULTURE Stat Lab 11/20/17 15:06 Completed VENOUS BLOOD GAS Stat Lab 11/20/17 14:50 Results Respiratory Nebulizer STAT RT 11/20/17 14:40 Active Respiratory Nebulizer STAT RT 11/20/17 15:58 Active Medication Summary Generic Name Dose Route Start Last Admin Trade Name Freq PRN Reason Stop Dose Admin Sodium Chloride 1,000 mls @ 50 mls/hr 11/20/17 14:45 11/20/17 15:31 Sodium Chloride 0.9% 1000 Ml IV 12/20/17 14:44 50 mls/hr .Q20H IVANA Administration Discontinued Medications Generic Name Dose Route Start Last Admin Trade Name Freq PRN Reason Stop Dose Admin Albuterol Sulfate 2.5 mg 11/20/17 15:58 11/20/17 16:05 Proventil 2.5 Mg/3 Ml Neb IH 11/20/17 15:59 2.5 mg STAT ONE Administration Albuterol Sulfate Confirm 11/20/17 16:04 Proventil 2.5 Mg/3 Ml Neb Administered 11/20/17 16:05 Dose 2.5 mg IH .STK-MED ONE Albuterol/Ipratropium 3 ml 11/20/17 14:38 11/20/17 15:02 Duoneb 0.5-3 Mg/3 Ml Neb IH 11/20/17 14:39 3 ml STAT ONE Administration Albuterol/Ipratropium Confirm 11/20/17 14:49 Duoneb 0.5-3 Mg/3 Ml Neb Administered 11/20/17 14:50 Dose 3 ml IH .STK-MED ONE Ceftriaxone Sodium/Dextrose 1 g in 50 mls @ 100 mls/hr 11/20/17 15:07 15:31 Rocephin 1 Gm-D5w 50 Ml Bag IV 11/20/17 15:36 100 mls/hr STAT STA Administration Ceftriaxone Sodium/Dextrose Confirm 11/20/17 15:27 Rocephin 1 Gm-D5w 50 Ml Bag Administered 11/20/17 15:28 Dose 1 g in 50 mls @ ud IV .STK-MED ONE Methylprednisolone Sodium Succinate 125 mg 11/20/17 15:16 11/20/17 15:32 Solu-Medrol 125 Mg IV 11/20/17 15:17 125 mg STAT ONE Administration Methylprednisolone Sodium Succinate Confirm 11/20/17 15:27 Solu-Medrol 125 Mg Administered 11/20/17 15:28 Dose 125 mg .ROUTE .STK-MED ONE Lab/Rad Data: Laboratory Result Diagrams 11/20/17 14:50 11/20/17 14:50 Laboratory Results 11/20/17 11/20/17 11/20/17 Range/Units 15:06 14:50 14:50 WBC (4.0-10.5) K/mm3 RBC (4.1-5.4) M/mm3 Hgb (12.0-16.0) gm/dl Hct (35-47) % MCV (78-100) fl MCH (26-32) pg MCHC (32-36) g/dl RDW (11.5-14.0) % Plt Count (150-450) K/mm3 MPV (6-9.5) fl Gran % (36.0-66.0) % Lymphocytes % (24.0-44.0) % Monocytes % (0.0-12.0) % Eosinophils % (0.00-5.0) % Basophils % (0.0-0.4) % Basophils # (0-0.4) D-Dimer 1090.46 H* (0-500) ng/mL VBG pH (7.32-7.42) VBG pCO2 at Pat Temp (42-55) mm/Hg VBG pO2 at Pat Temp (25-40) mm/Hg VBG HCO3 (22-28) meq/L VBG O2 Sat (Nadir) (95-100) VBG Base Excess (-2.0-2.0) VBG Hemoglobin VBG Carboxyhemoglobin (0.0-6.9) % T HGB POC Potassium (3.5-5.1) Sodium (136-145) mEq/L Potassium (3.5-5.1) mEq/L Chloride (98-107) mEq/L Carbon Dioxide (21-32) mEq/L Anion Gap (5-15) MEQ/L BUN (9-20) mg/dL Creatinine (0.55-1.30) mg/dl Estimated GFR ML/MIN Glucose (70-110) MG/DL Lactic Acid (0.4-2.0) Calcium (8.5-10.1) mg/dL Total Bilirubin (0.2-1.0) mg/dL AST (15-37) U/L ALT (12-78) U/L Alkaline Phosphatase (46-116) U/L Troponin I < 0.017 (0.000-0.056) ng/ml NT-Pro-B Natriuret Pep (0-450) pg/ml Serum Total Protein (6.4-8.2) gm/dL Albumin (3.4-5.0) g/dL Ur Collection Type CATH Urine Color LT.YELLOW (YELLOW) Urine Appearance CLEAR (CLEAR) Urine pH 6.0 (5-6) Ur Specific [place] 1.010 (1.005-1.025) Urine Protein NEGATIVE (Negative) Urine Ketones NEGATIVE (NEGATIVE) Urine Blood NEGATIVE (0-5) Branden/ul Urine Nitrite NEGATIVE (NEGATIVE) Urine Bilirubin NEGATIVE (NEGATIVE) Urine Urobilinogen NORMAL (0-1) mg/dL Ur Leukocyte Esterase NEGATIVE (NEGATIVE) Urine Culture Reflexed NO (NO) Urine Glucose 250 (NEGATIVE) mg/dL Slides for Path Review Specimen Received 11/20/17 1530 11/20/17 11/20/17 11/20/17 Range/Units 14:50 14:50 14:50 WBC 5.9 (4.0-10.5) K/mm3 RBC 2.50 L (4.1-5.4) M/mm3 Hgb 8.0 L (12.0-16.0) gm/dl Hct 27.2 L (35-47) % MCV 108.8 H (78-100) fl MCH 32.0 (26-32) pg MCHC 29.4 L (32-36) g/dl RDW 14.2 H (11.5-14.0) % Plt Count 377 (150-450) K/mm3 MPV 10.0 H (6-9.5) fl Gran % 79.7 H (36.0-66.0) % Lymphocytes % 9.5 L (24.0-44.0) % Monocytes % 5.9 (0.0-12.0) % Eosinophils % 4.1 (0.00-5.0) % Basophils % 0.8 (0.0-0.4) % Basophils # 0.05 (0-0.4) D-Dimer (0-500) ng/mL VBG pH 7.36 (7.32-7.42) VBG pCO2 at Pat Temp 64 H* (42-55) mm/Hg VBG pO2 at Pat Temp 26 (25-40) mm/Hg VBG HCO3 36.2 H* (22-28) meq/L VBG O2 Sat (Nadir) 60.4 L (95-100) VBG Base Excess 9.3 H (-2.0-2.0) VBG Hemoglobin 8.6 VBG Carboxyhemoglobin 6.2 (0.0-6.9) % T HGB POC Potassium 5.6 H (3.5-5.1) Sodium 132 L (136-145) mEq/L Potassium 5.6 H (3.5-5.1) mEq/L Chloride 96 L (98-107) mEq/L Carbon Dioxide 32.3 H (21-32) mEq/L Anion Gap 9.7 (5-15) MEQ/L BUN 38 H (9-20) mg/dL Creatinine 1.72 H (0.55-1.30) mg/dl Estimated GFR 31 ML/MIN Glucose 273 H (70-110) MG/DL Lactic Acid 2.2 H (0.4-2.0) Calcium 8.6 (8.5-10.1) mg/dL Total Bilirubin 0.20 (0.2-1.0) mg/dL AST 16 (15-37) U/L ALT 15 (12-78) U/L Alkaline Phosphatase 147 H (46-116) U/L Troponin I (0.000-0.056) ng/ml NT-Pro-B Natriuret Pep 2409 H (0-450) pg/ml Serum Total Protein 7.3 (6.4-8.2) gm/dL Albumin 3.3 L (3.4-5.0) g/dL Ur Collection Type Urine Color (YELLOW) Urine Appearance (CLEAR) Urine pH (5-6) Ur Specific [place] (1.005-1.025) Urine Protein (Negative) Urine Ketones (NEGATIVE) Urine Blood (0-5) Branden/ul Urine Nitrite (NEGATIVE) Urine Bilirubin (NEGATIVE) Urine Urobilinogen (0-1) mg/dL Ur Leukocyte Esterase (NEGATIVE) Urine Culture Reflexed (NO) Urine Glucose (NEGATIVE) mg/dL Slides for Path Review YES Specimen Received - Progress Progress: improved Air Movement: fair Progress Note: 11/20/17 15:08 77-year-old white female with history of high blood pressure, COPD, emphysema, pneumonia, diabetes, arthritis, osteoarthritis, irritable bowel, ulcers Patient was sent here from infusion center. Patient has been complaining of feeling short of breath for 4 days. She was noted to be anemic by her family doctor and had an iron infusion ordered. Patient was noted to be quite short of breath at the infusion center and she was taken to the emergency room for further treatment she was not given the iron infusion. Patient states that she has been coughing yellow sputum and wheezing for 2 days. She has not been vomiting she has no fevers. She did miss 2 DuoNeb treatments. On physical examination patient with diminished breath sounds and wheezes throughout her lung rojas. She has good peripheral perfusion she has stable blood pressure pulses stable. Patient did have a lactate of 2.2. Patient does have a history of CHF. Blood cultures sputum cultures urine has been ordered Rocephin has been ordered. Will start normal saline at 50 mL per hour secondary to patient's history of congestive heart failure and her dyspnea. Patient does not appear to be septic. She does have an elevated PCO2 and appears to have COPD with exacerbation. Patient does state that she cannot tolerate prednisone however she is able to take IV steroids. DuoNeb has been ordered for this patient 11/20/17 15:32 Patient is looking better after DuoNeb treatment. Will give patient 250 mL saline bolus to see if she can tolerate it. She is receiving per hour, 11/20/17 16:10 Patient's O2 sats down to 86% on 4 L. Patient with chest x-ray with small residual versus recurrent right base infiltrate/atelectasis clinical correlation is requested stable COPD. D-dimer is elevated 11/20/17 16:17 I had discussed the case with Dr. Miller and had considered placing the patient on observation [facility] the [facility] [address] however patient with an elevated d- dimer. GFR is around 31 so cannot do CTA. Will consider transfer to [facility]. Will place place call to [facility] one call. 11/20/17 16:56 Patient's case was discussed with Dr. Melara at [facility] ER. We are given a call back by Dr. Hyde. There is a bed available patient will be accepted at [facility] Will transfer patient. - Departure Time of Disposition: 16:57 Departure Disposition: Transfer ([facility]) Clinical Impression: COPD with exacerbation, Elevated d-dimer, SOB (shortness of breath) Pneumonia Qualifiers: Pneumonia type: due to unspecified organism Laterality: right Lung location: lower lobe of lung Qualified Code(s): J18.1 - Lobar pneumonia, unspecified organism Anemia Qualifiers: Anemia type: unspecified type Qualified Code(s): D64.9 - Anemia, unspecified Condition: Fair Critical Care Time: No Referrals: FREDDY TRAYLOR MD [Primary Care Provider] - Instructions: Chronic Obstructive Pulmonary Disease
[2017-11-20] MEDS ORDERED: Sodium Chloride 0.9% 1000 ML 1,000 ML ONE (15:05)
[2017-11-20] MEDS ORDERED: ROCEPHIN 1 Gm-D5w 50 ml Bag** 1 G/50 ML IVPB IV STA (15:07)
[2017-11-20 15:08] LABS: BASOPHIL % 0.8 % (0.0-0.4); Basophil (Absolute #) 0.05 (0-0.4); Eosinophil % 4.1 % (0.00-5.0); Eosinophil (Absolute #) 0.24 (0-0.5); Granulocyte Absolute (ANC) 4.72 (1.4-6.9); Granulocytes % 79.7 % (36.0-66.0); Hematocrit 27.2 % (35-47); Lymphocyte (Absolute #) 0.56 (1.0-4.6); Lymphocytes % 9.5 % (24.0-44.0); Mean Cell Volume 108.8 fl (78-100); Mean Corpuscular Hgb Concent. 29.4 g/dl (32-36); Monocyte (Absolute #) 0.35 (0.0-1.3); Monocytes % 5.9 % (0.0-12.0); Platelet Count 377 K/mm3 (150-450); Red Cell Distribution Width 14.2 % (11.5-14.0); White Blood Count 5.9 K/mm3 (4.0-10.5)
--- NOTE | 2017-11-20 15:10 | XRAY ---
Indication: Short of breath. Comparison: October 06, 2017. Portable chest again hyperinflated with small focus of the right base infiltrate/atelectasis either recurrent versus residual. Previous right upper lobe opacity has cleared. Remaining lungs clear again with scattered calcified granulomas. Heart is not enlarged. Bony thorax intact again with mild osteopenia, degenerative changes, and left axillary calcified node. Impression: 1. Small residual versus recurrent right base infiltrate/atelectasis. Correlate clinically. 2. Stable COPD and evidence for old granulomatous disease.
[2017-11-20] MEDS ORDERED: solu-MEDROL 125 MG IV ONE (15:16)
[2017-11-20] MEDS ORDERED: solu-MEDROL 125 MG ONE (15:27)
[2017-11-20] MEDS ORDERED: ROCEPHIN 1 Gm-D5w 50 ml Bag** 1 G/50 ML IVPB IV ONE (15:27)
[2017-11-20 15:42] LABS: ALBUMIN 3.3 g/dL (3.4-5.0); ANION GAP 9.7 MEQ/L (5-15); BILIRUBIN,TOTAL 0.2 mg/dL (0.2-1.0); Calcium 8.6 mg/dL (8.5-10.1); Carbon Dioxide 32.3 mEq/L (21-32); Creatinine 1 1.72 mg/dl (0.55-1.30); Potassium 5.6 mEq/L (3.5-5.1); Total Protein 7.3 gm/dL (6.4-8.2)
[2017-11-20 15:43] LABS: Slide Review 1 YES
[2017-11-20 15:57] LABS: Appearance CLEAR (CLEAR); Bilirubin NEGATIVE (NEGATIVE); Blood NEGATIVE Ery/ul (0-5); Glucose 250 mg/dL (NEGATIVE); Ketones NEGATIVE (NEGATIVE); Leukocyte Esterase NEGATIVE (NEGATIVE); Nitrite NEGATIVE (NEGATIVE); Protein,Urine Dip NEGATIVE (Negative); Urobilinogen NORMAL mg/dL (0-1)
[2017-11-20] MEDS ORDERED: PROVENTIL 2.5 MG/3 ML NEB IH ONE ×2 (15:58→16:04)
[2017-11-20 16:55] VITALS: BP 143/62; PULSE 75
[2017-11-20 17:00] VITALS: O2SAT 93
== END 2017-11-20 17:37 | disposition short-term general hospital (02) ==
LOC: ED 14:37
DX: J44.1 Chronic obstructive pulmonary disease with (acute) exacerbation (principal); R79.1 Abnormal coagulation profile; J18.1 Lobar pneumonia, unspecified organism; D64.9 Anemia, unspecified; R06.02 Shortness of breath; Z79.899 Other long term (current) drug therapy
CPT/HCPCS: 93041; 96374; 96365; 99285; 36000; 96360; 96361; 93005; 87040; 81002; 36415; 83880; 85379; 85025; 80053; 84484; 71045; 82805; 94640 ×2; 83605; P9612; J0696; J2930; A9270-GY

== ENCOUNTER 2018-03-12 15:19 | Observation (INO) | payer MEDICARE ==
[2018-03-12] MEDS: DUONEB 0.5-3 MG/3 ml Neb IH SCH ×3 (16:05→23:08)
[2018-03-12] MEDS ORDERED: BENADRYL 25 MG CAPSULE PO PRN (16:25)
[2018-03-12] MEDS ORDERED: TYLENOL EXTRA STRENGTH 500 MG PO PRN (16:26)
[2018-03-12] MEDS ORDERED: Sodium Chloride 0.9% 500 ML 500 ML IV SCH (16:30)
[2018-03-12] MEDS ORDERED: Lasix 20 MG/2 ML IV ONE (21:34)
[2018-03-12] MEDS: Catapres 0.1 MG PO SCH (22:00)
[2018-03-12] MEDS: Coreg 6.25 MG PO SCH (22:00)
[2018-03-13 03:00] LABS: Hematocrit 25.5 % (35-47); Hemoglobin 8.1 gm/dl (12.0-16.0)
[2018-03-13] MEDS: DUONEB 0.5-3 MG/3 ml Neb IH SCH ×2 (03:52→07:14)
[2018-03-13 08:06] VITALS: BP 162/70; PULSE 81; O2SAT 95
[2018-03-13] MEDS ORDERED: BUMEX 1 MG PO SCH (10:00)
[2018-03-13] MEDS: Catapres 0.1 MG PO SCH (10:01)
[2018-03-13] MEDS: Coreg 6.25 MG PO SCH (10:02)
== END 2018-03-13 11:10 | disposition home or self-care (01) ==
LOC: MED SURG 15:39
PROVIDERS: ADMIT General Practice; ATTEND General Practice
DX: D63.8 Anemia in other chronic diseases classified elsewhere (principal)
CPT/HCPCS: 36415; 85014; 85018; 94150; 94640; 94760; G0378; 36430; J1940; A9270-GY

== ENCOUNTER 2018-04-29 06:52 | Emergency (ER) | payer MEDICARE ==
--- NOTE | 2018-04-29 07:10 | ERPHSYRPT ---
- History of Present Illness Time Seen by Provider: 04/29/18 07:07 Source: patient Physician History: mild to mod ache pain of the right hip is positional, no bleeding, no neck pain , no back pain, no loc, pt tripped and fell at hospice today [facility], on home oxygen , no other injury, pt refused additional pain med Allergies/Adverse Reactions: clopidogrel bisulfate [From Plavix] Adverse Reaction (Severe, Verified 04/29/18 07:12) oxycodone HCl [From Percodan] Adverse Reaction (Intermediate, Verified 04/29/18 07:12) hallucinate oxycodone terephthalate [From Percodan] Adverse Reaction (Intermediate, Verified 04/29/18 07:12) hallucinations itching prednisone Adverse Reaction (Intermediate, Verified 04/29/18 07:12) Feeling jittery with prednisone Home Medications: Clonidine HCl 0.1 mg [Catapres 0.1 MG] 0.1 mg PO BID 01/27/14 [History] Aspirin 81 gm Chew [Baby Aspirin 81 mg Chew] 81 mg PO DAILY 05/15/14 [ History] Glipizide 5 mg [Glucotrol 5 MG] 5 mg PO DAILY 05/15/14 [History] Carvedilol 12.5 mg [Coreg 12.5 mg] 25 mg PO BID 10/20/14 [History] Bumetanide 2 mg PO BID 03/08/15 [History] Magnesium 250 mg PO DAILY 10/13/16 [History] Acetaminophen [Tylenol] 650 mg PO Q6H PRN PRN 04/29/18 [History] Albuterol/Ipratropium 3ml Neb* [DUONEB 0.5-3 MG/3 ml Neb] 3 ml IH QID PRN 10/05 [History] Amlodipine Besylate 5 mg [Norvasc 5 mg] 5 mg PO DAILY 04/29/18 [History] Bisacodyl 10 mg [Dulcolax 10 MG SUPP] 10 mg RC DAILY PRN PRN 04/29/18 [ History] Docusate Sodium 100 mg [Colace 100 MG] 100 mg PO DAILY 04/29/18 [History] Ferrous Sulfate [Iron] 134 mg PO DAILY 04/29/18 [History] Lorazepam 1 mg [Ativan 1 MG] 1 mg PO Q4HPRN PRN 04/29/18 [History] Morphine Sulfate 0.25 ml PO Q4HPRN PRN 04/29/18 [History] PANTOPRAZOLE 40 mg Tablet [Protonix 40MG Tablet] 40 mg PO BID 04/29/18 [ History] Sodium Chloride [Saline Nasal [place]] 2 spray NS BID PRN 04/29/18 [History] Hx Tetanus, Diphtheria Vaccination/Date Given: No Hx Influenza Vaccination/Date Given: No (07/2013) Hx Pneumococcal Vaccination/Date Given: No (within last 5 years) - Review of Systems Constitutional: No Fever Eyes: No Vision Changes Ears, Nose, & Throat: No Mouth Pain Respiratory: No Cyanosis Cardiac: No Chest Pain Abdominal/Gastrointestinal: No Abdominal Pain Genitourinary Symptoms: No Dysuria Musculoskeletal: Fall, Joint Pain, No Back Pain, No Neck Pain Skin: No Skin Lesions Neurological: No Dizziness - Past Medical History Pertinent Past Medical History: Yes Neurological History: No Pertinent History ENT History: No Pertinent History Cardiac History: Hypertension, Other Respiratory History: Bronchitis, COPD, Emphysema, Pneumonia Endocrine Medical History: Diabetes Type II Musculoskeletal History: Arthritis, Osteoarthritis GI Medical History: Irritable Bowel, Ulcer History: No Pertinent History Psycho-Social History: No Pertinent History Female Reproductive Disorders: No Pertinent History, Other Other Medical History: stomach aneurysm, 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 EGD - Social History Smoking Status: Current every day smoker How long have you smoked: 55 years Exposure to second hand smoke: Yes Drug Use: none Patient Lives Alone: No - Nursing Vital Signs Nursing Vital Signs: Initial Vital Signs Temperature 98.8 F 04/29/18 06:55 Pulse Rate 95 H 04/29/18 06:55 Respiratory Rate 18 04/29/18 06:55 Blood Pressure 168/65 04/29/18 06:55 O2 Sat by Pulse Oximetry 95 04/29/18 06:55 Pain Scale Pain Intensity 8 - Physical Exam General Appearance: no apparent distress Eye Exam: eyes nml inspection Ears, Nose, Throat Exam: pharynx normal Neck Exam: No meningismus Respiratory Exam: normal breath sounds, No respiratory distress Cardiovascular Exam: regular rate/rhythm Gastrointestinal Exam: soft, No tenderness Back Exam: normal inspection Extremity Exam: pelvis stable, other (tender right hip, rom limited by pain, sen and pulses intact, nontender knee and ankle) Neurologic Exam: alert, oriented x 3, cooperative Skin Exam: warm, dry - Course Nursing assessment & vital signs reviewed: Yes - CT Exams Pelvis CT Interpretation: Other (apparent right intertrochanteric hip fx displaced) Ordered Tests: Active Orders 24 hr Category Date Time Status PELVIS WITHOUT CONTRAST [CT] Stat Exams 04/29/18 07:06 Taken - Progress Progress: unchanged Progress Note: 04/29/18 08:53 [facility] by Dr Medina Counseled pt/family regarding: diagnosis, need for follow-up, rad results - Departure Time of Disposition: 08:52 Departure Disposition: Transfer Clinical Impression: Hip fracture Qualifiers: Encounter type: initial encounter Fracture type: closed Laterality: right Qualified Code(s): S72.001A - Fracture of unspecified part of neck of right femur, initial encounter for closed fracture Condition: Stable Critical Care Time: No Referrals: FREDDY TRAYLOR MD [Primary Care Provider] -
--- NOTE | 2018-04-29 09:10 | XRAY ---
Indication: Right hip pain and limited range of motion following fall. Multiple contiguous axial images obtained through the pelvis with special attention to the osseous structures. Sagittal and coronal reformatted images obtained. Comparison: None Osseous structures demineralized consistent with patient's age. There is mildly comminuted right intertrochanteric impacted fracture with displaced lesser trochanteric fracture fragment. Both hip articulations intact with moderate/advanced degenerative changes. Additional moderate degenerative changes of both SI joints and visualized lower lumbar spine. Visualized noncontrasted soft tissues demonstrates incompletely visualized diffuse scattered colonic fecal debris. Also bilateral iliac stent grafts. Lack of contrast precludes luminal patency. Villeda balloon catheter empties the urinary bladder. Small bilateral fatty inguinal hernias. Bilateral gluteal calcified injection granulomas. Impression: 1. Right intertrochanteric fracture as detailed. 2. Osteopenia and degenerative changes. 3. Bilateral iliac stent grafts and Villeda catheter in situ. 4. Bilateral fatty inguinal hernias. CTDI 61.31
[2018-04-29 09:13] VITALS: BP 161/54; PULSE 85; O2SAT 93
== END 2018-04-29 09:14 | disposition short-term general hospital (02) ==
LOC: ED 06:52
DX: S72.141A Displaced intertrochanteric fracture of right femur, initial encounter for closed fracture (principal); W01.0XXA Fall on same level from slipping, tripping and stumbling without subsequent striking against object, initial encounter; Z79.899 Other long term (current) drug therapy
CPT/HCPCS: 51702; 72192; 99284